=== PATIENT | female | born 2000 | race Caucasian/White ===

== ENCOUNTER 2022-08-13 17:57 | Emergency (ER) | payer OTHER, SELFPAY ==
[2022-08-13] VITALS (16 sets, daily range): BP systolic 120–128; BP diastolic 59–90; PULSE 92–105; RESP 13–20; TEMP 36.7; O2SAT 96–100
--- NOTE | ~2022-08-13 | XR_ITS ---
EXAMINATION: XR chest 1V portable Exam Date/Time: 08/13/2022 18:40 COMMUNITY NURSE HISTORY: seizure Comparison: None available. RESULT: Lines, tubes, and devices: None. Lungs and pleura: Clear. Cardiomediastinal silhouette: Normal. Other: No acute osseous or upper abdominal finding. IMPRESSION: No acute cardiopulmonary process. Reviewed, dictated and finalized at location K. UNITY NURSE
--- NOTE | ~2022-08-13 | CT_ITS ---
EXAMINATION: CT brain wo con DATE: 08/13/2022 19:47 INDICATION: seizures, FALL, HIT TO POSTERIOR HEAD, THAKKAR, NAUSEA . TECHNIQUE: Computed tomography (CT) of the head was performed without intravenous contrast. The mA wa s adjusted according to patient size. Iterative reconstruction technique was employed. The dose-lengt h product was 605.33 mGy-cm. COMPARISON: None. FINDINGS: No acute intracranial hemorrhage or extra-axial fluid collection. No hydrocephalus, mass, or herniation. No acute ischemic infarct. Unremarkable dural venous sinus attenuation. No acute osseous abnormality. Posterior scalp hematoma at the vertex. The aerated spaces are clear. IMPRESSION: No acute intracranial process. Reviewed, dictated and finalized at location K. AGE DESIGNER
--- NOTE | 2022-08-13 18:37 | ECG_ITS ---
Measurements Intervals [place] Rate: 93 P: 75 ME: 137 QRS: -6 QRSD: 98 T: 59 QT: 383 QTc: 478 Interpretive Statements SINUS RHYTHM LEFT ATRIAL ENLARGEMENT INDETERMINATE AXIS INCOMPLETE RIGHT BUNDLE BRANCH BLOCK BORDERLINE ECG NO PREVIOUS ECG AVAILABLE FOR COMPARISON Electronically Signed On 08-14-2022 14:06:09 [employer] by Glenroy Jaimes M.D.
--- NOTE | 2022-08-13 18:40 | ED.SEIZURE ---
HPI - Seizure General Chief Complaint: Seizure Stated Complaint: seizure, no seizure hx, A&O x4 now Time Seen by Provider: 08/13/22 18:27 Source: patient, EMS and RN notes reviewed Mode of arrival: EMS Limitations: no limitations History of Present Illness HPI Narrative: This is a 22 year old female with history of ADHD who presents for evaluation of a seizure. Patient states she was doing laundry. She remembers throwing something in washing machine and then she woke up on the floor. EMS reports patient was witnessed to have grand mal seizure and she was postictal. PAtient denies history of seizures. She denies having preceding dizziness or palpitations. She denies taking new medications. She denies any benzo use. She has not used marijuana in 1 month. She reports nausea now. She denies incontinence or biting her tongue Related Data Allergies Allergy/AdvReac Type Severity Reaction Status Date / Time No Known Allergies Allergy Verified 08/13/22 18:08 Review of Systems Constitutional: Constitutional: Denies weakness Cardiovascular: Cardiovascular: Denies syncope, Denies rapid heart rate, Denies irregular heart rhythm, Denies leg edema and Denies dyspnea Respiratory: Respiratory: Denies chest congestion, Denies hemoptysis, Denies excessive phlegm production and Denies dyspnea Gastrointestinal: Gastrointestinal: Denies abdominal pain, Denies hematochezia, Denies diarrhea and Denies vomiting Genitourinary: Genitourinary: Denies hematuria and Denies dysuria Musculoskeletal: Musculoskeletal: Denies joint swelling, Denies loss of height and Denies muscle weakness Neurologic: Denies syncope, Denies focal weakness and Denies weakness PMFSH Past Medical History Medical History (Updated 08/13/22 @ 21:33 by Radha Mayfield MD) ADHD Social History Social History (Updated 08/13/22 @ 18:51 by Radha Mayfield MD) Tobacco type: e-cigarettes/vaping Alcohol intake: never Substance use: former Substance use type: marijuana Exam Const: General: no acute distress and alert Nutritional Appearance: well nourished Orientation/consciousness: patient oriented x3 HENMT: Head: hematoma (right posterior hematoma) Face and sinus: normal facial exam Mouth: Yes Normal oral and palatal mucosa present and Yes lip normal Throat: posterior oropharynx normal Eyes: Conjunctivae: conjunctivae normal Pupils: Equal, round and reactive pupils present Neck: Neck: normal visual inspection Chest: Chest palpation & inspection: normal inspection of the chest Resp: Effort & Inspection: normal respiratory effort Auscultation: clear to auscultation bilaterally Cardio: Rate: regular rate Rhythm: regular rhythm Heart sounds: no murmurs GI: GI Palp: Yes Soft to palpation, No Tenderness to palpation present (GI), No Guarding due to palpation present (GI) and No Rigid due to palpation Auscultation: normal bowel sounds Skin: General skin exam: normal color Rashes: no rashes Wounds: no wounds Neuro: General: patient oriented x3, moves all extremities and CN's II-XI intact bilaterally Extrem: General: normal to inspection Psych: Appearance: grossly normal Mental Status: mental status grossly normal Affect: normal affect Attitude: cooperative Course Reevaluation(s) Reevaluation #1: I discussed with patient plan to admit for EEG And MRI. SHe initially was okay with decision. She has now decided she does not want to stay because her partner can not stay with her upstairs in room. She has decided to sign AMA. I discussed with patient risk and benefits. She understands and accepts the risk. She reports she will get test ordered as outpatient. I explained this could delay her diagnosis and treatment. Partner is at bedside and understand risk. Date: 08/13/22 Time: 21:22 Consultations Consultation #1: I spoke with Dr. Tirado regarding patient new onset seizure. He recommends admission for EEG, MRI and request patient receive K
[2022-08-13] MEDS: SODIUM CHLORIDE 0.9% IV 1,000 ML 999 ML IV CONT (18:44)
[2022-08-13 19:06] LABS: Appearance Urine Clear (Clear); Bilirubin Urine Negative (Negative); Blood Urine 1+ (Negative); Color Urine Yellow (Yellow); Glucose Urine UA Negative (Negative); Ketones Urine Negative (Negative); Leukocyte Esterase Ur Negative LEU/UL (Negative); Nitrate Urine Negative (Negative); Protein Urine Trace mg/dL (Negative); Urobilinogen Urine 0.2 mg/dL (<2.0); pH Urine 7.5 (5.0-9.0)
[2022-08-13 19:13] LABS: Bacteria Urine Trace /hpf; Mucus Urine Rare /lpf; RBC Urine 0-2 /hpf (0-2); Squamous Epithelial Cell Urine Occasional /hpf (Few); WBC Urine 0-3 /hpf
[2022-08-13 19:15] LABS: Add Urine Microscopic? YES
[2022-08-13 19:21] LABS: Amphetamine Screen Urine Positive (Negative); Barbiturate Screen Urine Negative (Negative); Benzodiazepines Screen Urine Negative (Negative); Cannabinoid Screen Urine Negative (Negative); Cocaine Screen Urine Negative (Negative); Methadone Screen Urine Negative (Negative); Opiate Screen Urine Negative (Negative); Phencyclidine Screen Urine Negative (Negative)
[2022-08-13 19:36] LABS: Basophils Absolute Auto 0.1 K/mm3 (0.0-0.1); Basophils Percent Auto 0.4 % (0.2-1.2); Eosinophils Absolute Auto 0.8 K/mm3 (0-0.3); Eosinophils Percent Auto 5.9 % (0-4.4); Hematocrit 34.5 % (37.0-47.0); Hemoglobin 11.3 g/dL (12.0-15.0); Immature Granulocyte Absolute 0.05 K/mm3 (0.00-0.031); Immature Granulocyte Percent A 0.4 % (0-0.5); Lymphocytes Absolute Auto 1.43 K/mm3 (0.9-3.2); Lymphocytes Percent Auto 10.1 % (18.3-44.2); Mean Corpuscular HGB Conc 32.8 g/dl (32-36); Mean Corpuscular Hemoglobin 29.3 pg (26-34); Mean Corpuscular Volume 89.4 fl (80-100); Mean Platelet Volume 9.6 fl (7.4-10.4); Monocytes Absolute Auto 0.8 K/mm3 (0.1-0.6); Monocytes Percent Auto 5.6 % (2.6-8.5); Neutrophils Percent Auto 77.6 % (45.5-73.1); Platelet Count Result 388 k/mm3 (150-375); Red Blood Count 3.86 M/mm3 (4.2-5.4); Red Cell Distribution Width 13.1 % (11.5-14.5); White Blood Count 14.2 K/mm3 (4.5-10.0)
[2022-08-13 19:47] LABS: Ethanol < 10 mg/dL (<10); Lactic Acid Reflex 1.2 mmol/L (0.7-2.0); Prothrombin Time 12.9 Seconds (11.1-14.7)
[2022-08-13 19:48] LABS: Alanine Aminotransferase 28 U/L (6-35); Albumin Level 4.2 g/dL (3.5-5.1); Alkaline Phosphatase 72 U/L (38-126); Anion Gap 4 mmol/L (8-16); Aspartate Amino Transferase 35 U/L (14-36); Bilirubin,Total 0.4 mg/dL (0.2-1.3); Blood Urea Nitrogen 16 mg/dL (7-17); Calcium 8.4 mg/dL (8.4-10.2); Carbon Dioxide 24 mmol/L (22-30); Chloride 106 mmol/L (98-107); Estimated CRCL calculation 78 ml/min; Estimated Glomerular Filt Rate > 60; Glucose 100 mg/dL (65-110); Magnesium 1.7 mg/dL (1.6-2.3); Partial Thromboplastin Time 26.7 SECONDS (22.3-36.8); Potassium 3.9 mmol/L (3.4-5.0); Sodium 134 mmol/L (137-145)
--- NOTE | 2022-08-13 20:39 | PC.NURSE ---
Pt resting comfortably in bed, seizure precautions maintained, on canine enforcement officer showing SR, all VSS, all needs addressed, no question at this time, updated pt on plan of care.
--- NOTE | 2022-08-13 21:14 | P.HP_ITS ---
H&P: HPI History of Present Illness Date/Time: 08/13/22 21:14 [facility] Past Medical History Medical History (Updated 08/13/22 @ 18:50 by Radha Mayfield MD) ADHD Social History Social History (Updated 08/13/22 @ 18:51 by Radha Mayfield MD) Tobacco type: e-cigarettes/vaping Alcohol intake: never Substance use: former Substance use type: marijuana Meds Home Medications and Allergies Allergies Allergy/AdvReac Type Severity Reaction Status Date / Time No Known Allergies Allergy Verified 08/13/22 18:08 Vital Signs Vital Signs - 24 hr 08/13/22 18:03 08/13/22 18:55 08/13/22 18:55 Temperature 98.1 F Pulse Rate 105 H 99 Respiratory Rate 16 Blood Pressure 120/59 L Pulse Oximetry 100 Oxygen Delivery Room Air Room Air 08/13/22 18:35 08/13/22 19:00 08/13/22 19:01 Temperature Pulse Rate 100 99 97 Respiratory Rate 16 13 15 Blood Pressure 126/90 Pulse Oximetry 100 100 100 Oxygen Delivery 08/13/22 19:17 08/13/22 19:30 08/13/22 19:48 Temperature Pulse Rate 100 97 92 Respiratory Rate 15 18 14 Blood Pressure Pulse Oximetry 100 100 Oxygen Delivery 08/13/22 19:49 08/13/22 20:16 08/13/22 20:17 Temperature Pulse Rate 92 95 99 Respiratory Rate 18 16 17 Blood Pressure 128/85 124/81 Pulse Oximetry 100 100 96 Oxygen Delivery 08/13/22 20:30 Temperature Pulse Rate 94 Respiratory Rate 13 Blood Pressure Pulse Oximetry 100 Oxygen Delivery H&P: Results Labs Labs: Short CBC 08/13/22 Range/Units 19:28 WBC 14.2 H (4.5-10.0) K/mm3 Hgb 11.3 L (12.0-15.0) g/dL Hct 34.5 L (37.0-47.0) % Plt Count 388 H (150-375) k/mm3 BMP 08/13/22 19:28 Sodium 134 L Potassium 3.9 Chloride 106 Carbon Dioxide 24 BUN 16 Creatinine 0.70 Glucose 100 Calcium 8.4 Liver Function 08/13/22 Range/Units 19:28 Total Bilirubin 0.4 (0.2-1.3) mg/dL AST 35 (14-36) U/L ALT 28 (6-35) U/L Alkaline Phosphatase 72 (38-126) U/L Albumin 4.2 (3.5-5.1) g/dL Urine 08/13/22 Range/Units 19:00 Urine Color Yellow (Yellow) Urine Appearance Clear (Clear) Urine pH 7.5 (5.0-9.0) Ur Specific [place] 1.020 (1.001-1.035) Urine Protein Trace (Negative) mg/dL Urine Glucose (UA) Negative (Negative) mg/dL
[2022-08-13 22:01] LABS: Influenza A QL RT-PCR Negative (Negative); Influenza B QL RT-PCR Negative (Negative); SARS-CoV-2 RNA PCR Negative
== END 2022-08-13 22:05 | disposition left against medical advice (07) ==
PROVIDERS: Emergency Provider General Practice; PCP Family Medicine
DX: R56.9 Unspecified convulsions (principal); Z20.822 Contact with and (suspected) exposure to COVID-19; F17.290 Nicotine dependence, other tobacco product, uncomplicated; I45.10 Unspecified right bundle-branch block; R94.31 Abnormal electrocardiogram [ECG] [EKG]
CPT/HCPCS: 36415; 70450; 71045; 80053; 80307; 81001; 81025; 83605; 83735; 85025; 85610; 85730; 87636; 93005; 96360; 99284; J7030

== ENCOUNTER 2023-03-09 18:56 | Emergency (ER) | payer OTHER, SELFPAY ==
--- NOTE | ~2023-03-09 | XR_ITS ---
XR chest 1V portable DATE: 03/09/2023 22:00 INDICATION: Asthma flare. Shortness of breath. TECHNIQUE: Portable upright AP chest on 03/09/2023 2151 hours COMPARISON: August 13, 2022 portable AP chest FINDINGS: Normal heart size. No hilar or mediastinal enlargement. No pulmonary infiltrate or consolid ation, pleural effusion or pulmonary vascular congestion or pneumothorax. IMPRESSION: No active cardiopulmonary disease Reviewed, dictated and finalized at location A.
[2023-03-09 19:14] VITALS: BP 127/77; PULSE 114; RESP 22; TEMP 36.7; O2SAT 100
[2023-03-09 21:14] VITALS: BP 136/82; PULSE 118; RESP 24; O2SAT 97
[2023-03-09 21:23] VITALS: O2SAT 96
--- NOTE | 2023-03-09 21:38 | ED.ASTHMA ---
HPI - Asthma General Chief Complaint: Asthma Stated Complaint: asthma exacerbation Time Seen by Provider: 03/09/23 21:34 Source: patient Mode of arrival: ambulatory Limitations: no limitations History of Present Illness HPI Narrative: 22 years old white female history of asthma, complaining of shortness of breath for the last 2 days, got worse over the last 2 hours prior to arrival. Also complaining of runny nose, sneezing, productive cough. Related Data Allergies Allergy/AdvReac Type Severity Reaction Status Date / Time No Known Allergies Allergy Verified 03/09/23 18:57 Review of Systems Review of Systems: All systems reviewed & are unremarkable except as noted in HPI and below PMFSH Past Medical History Medical History ADHD Social History Social History Tobacco type: e-cigarettes/vaping Alcohol intake: never Substance use: former Substance use type: marijuana Exam Narrative: General appearance: Well-developed, well-nourished Skin: Eczematous changes all over the body, periorbital dermatitis Head: Normocephalic, nontraumatic Eyes: Clear conjunctiva ENT: Oropharynx normal, ears normal, nose normal Neck: Supple, nontender Chest and respiratory: Airway patent, no respiratory distress, generalized wheezing and rhonchi bilaterally mainly expiratory Heart: Regular rate/rhythm Abdomen: Soft, nontender, no organomegaly, quiet bowel sounds Vascular: Normal peripheral pulses, normal capillary refill. Musculoskeletal: Normal range of motion, nontender back Neurologic: Alert and oriented ?3, REVENUE INTEGRITY ANALYST is normal as tested, no gross motor deficit Course Consultations Consultation #1: Patient care turned over to Dr. Johnson at shift change, awaiting, imaging, disposition. Date: 03/09/23 Time: 22:20 Vital Signs Vital signs: Vital Signs Temperature 98.1 F 03/09/23 19:14 Pulse Rate 114 H 03/09/23 19:14 Respiratory Rate 22 H 03/09/23 19:14 Blood Pressure 127/77 03/09/23 19:14 Pulse Oximetry 100 03/09/23 19:14 Oxygen Delivery Room Air 03/09/23 19:14 Temperature 98.1 F 03/09/23 19:14 Pulse Rate 99 03/09/23 22:43 Respiratory Rate 16 03/09/23 22:42 Blood Pressure 136/82 03/09/23 21:14 Pulse Oximetry 96 03/09/23 21:23 Oxygen Delivery Room Air 03/09/23 21:23 MDM - Asthma MDM Narrative Medical decision making narrative: Patient presents with increased shortness of breath and productive cough over the last 2 days. History of asthma and eczema. Patient does not take any medication except rescue inhaler. Physical examination showed generalized wheezing and rhonchi bilaterally and generalized scattered eczema with periorbital dermatitis. Work-up today include chest x-ray, COVID. The plan to start patient on albuterol 2.5 every 20 minutes, check peak flow before and after treatment, prednisone 60 mg p.o. once. Differential Diagnosis Differential diagnosis: Likely Acute exacerbation, Acute asthmatic bronchitis, Pneumonia and other (Eczema) Lab Data Labs: Lab Results 03/09/23 Range/Units 22:33 SARS-CoV-2 RNA (RT-PCR) Negative (Negative) Discharge Plan Discharge Clinical Impression: Asthma with acute exacerbation, Eczema Patient Disposition: Home, Self-Care Condition: Stable Instructions: Antibiotic Form, Asthma (ED), Eczema (ED), Allergies (ED) Prescriptions: New triamcinolone acetonide 0.5 % cream 1 applic topical TID Qty: 15 0RF albuterol sulfate 90 mcg/actuation aerosol powdr breath activated 2 inh inhalation Q4-6H PRN (Reason: shortness of manav
[2023-03-09] MEDS: IPRATROPIUM BR 0.02% INH SOLN 0.5 MG/2.5 ML VIAL INHALATION (22:01)
[2023-03-09] MEDS: ALBUTEROL SULFATE NEB 2.5 MG/3 ML INH INHALATION ×3 (22:01→22:21)
[2023-03-09 22:08] VITALS: PULSE 82; RESP 16
[2023-03-09] MEDS: predniSONE 20 MG TABLET 60 MG PO (22:29)
[2023-03-09 22:42] VITALS: PULSE 79; RESP 16
[2023-03-09 22:43] VITALS: PULSE 99
[2023-03-09 23:37] LABS: SARS-CoV-2 RNA PCR Negative (Negative)
--- NOTE | 2023-03-10 01:15 | PC.NURSE ---
This RN assumed care of patient. This RN took patient report from POLO Zamudio.
[2023-03-10 02:12] VITALS: BP 118/75; PULSE 96; RESP 15; O2SAT 100
== END 2023-03-10 02:15 | disposition home or self-care (01) ==
PROVIDERS: Emergency Medicine; Emergency Provider Student in an Organized Health Care Education/Training Program; PCP Family Medicine
DX: J45.901 Unspecified asthma with (acute) exacerbation (principal); L30.9 Dermatitis, unspecified; F17.290 Nicotine dependence, other tobacco product, uncomplicated
CPT/HCPCS: 71045; 87635; 94640; 99283; J7512

== ENCOUNTER 2023-04-24 21:15 | Emergency (ER) | payer OTHER, SELFPAY ==
[2023-04-24 21:32] VITALS: BP 133/90; PULSE 54; RESP 14; TEMP 36.5; O2SAT 98
[2023-04-24 22:16] LABS: Appearance Urine Clear (Clear); Bilirubin Urine Negative (Negative); Blood Urine Negative (Negative); Color Urine Yellow (Yellow); Glucose Urine UA Negative (Negative); Ketones Urine Negative (Negative); Leukocyte Esterase Ur Negative LEU/UL (Negative); Nitrate Urine Negative (Negative); Protein Urine Negative (Negative); Specific Grav Ur 1.016 (1.001-1.035); pH Urine 7.5 (5.0-9.0)
[2023-04-24 22:17] LABS: Basophils Percent Auto 0.3 % (0.2-1.2); Eosinophils Absolute Auto 0.1 K/mm3 (0-0.3); Eosinophils Percent Auto 0.3 % (0-4.4); Hematocrit 35.3 % (37.0-47.0); Hemoglobin 10.6 g/dL (12.0-15.0); Immature Granulocyte Absolute 0.32 K/mm3 (0.00-0.031); Immature Granulocyte Percent A 2.1 % (0-0.5); Lymphocytes Absolute Auto 2.19 K/mm3 (0.9-3.2); Lymphocytes Percent Auto 14.5 % (18.3-44.2); Mean Corpuscular Hemoglobin 25.9 pg (26-34); Mean Corpuscular Volume 86.1 fl (80-100); Mean Platelet Volume 9.9 fl (7.4-10.4); Monocytes Absolute Auto 0.8 K/mm3 (0.1-0.6); Monocytes Percent Auto 5.4 % (2.6-8.5); Neutrophils Absolute Auto 11.7 K/mm3 (1.3-6.7); Neutrophils Percent Auto 77.4 % (45.5-73.1); Platelet Count Result 448 k/mm3 (150-375); White Blood Count 15.1 K/mm3 (4.5-10.0)
[2023-04-24 22:22] LABS: Add Urine Microscopic? NO
[2023-04-24 22:26] LABS: Acetaminophen < 10 ug/mL (10-30); Ethanol < 10 mg/dL (<10); Salicylate < 1.0 mg/dL (2-20)
[2023-04-24 22:28] LABS: Alanine Aminotransferase 28 U/L (6-35); Albumin Level 4.3 g/dL (3.5-5.1); Alkaline Phosphatase 76 U/L (38-126); Anion Gap 8 mmol/L (8-16); Aspartate Amino Transferase 25 U/L (14-36); Bilirubin,Total 0.3 mg/dL (0.2-1.3); Blood Urea Nitrogen 14 mg/dL (7-17); Calcium 9.5 mg/dL (8.4-10.2); Carbon Dioxide 21 mmol/L (22-30); Chloride 107 mmol/L (98-107); Estimated CRCL calculation 87 ml/min; Estimated Glomerular Filt Rate > 60; Glucose 105 mg/dL (65-110); Potassium 4.1 mmol/L (3.4-5.0); Sodium 136 mmol/L (137-145)
--- NOTE | 2023-04-24 22:30 | ED.PSYCH ---
HPI - Psych General Chief Complaint: Psychiatric Symptoms Stated Complaint: psychotic episode Time Seen by Provider: 04/24/23 21:48 Source: patient and old records reviewed Mode of arrival: ambulatory Limitations: no limitations History of Present Illness HPI Narrative: Patient is a 22 y/o female, with PMH of bipolar disorder, OCD, DID, who presents to the ED with c/o psychotic episode. Patient reports that she has approximately 120 different personalities. She states she took her normal psychiatric medications tonight but then smoked a weed vape pen. She states she smoked too much. She began feeling like she was going to have a seizure and went into a psychotic episode. She then called for her friends to come help her. Patient states she has had 2 previous psychotic episodes in the past. She began having dark thoughts during this episode and had thoughts of wanting to stab herself with a knife in the hand. She has had several previous suicide attempts in the past, mostly overdoses. She states she is always suicidal. She did not attempt anything or take any additional medicines tonight. Denied any homicidal ideation. Related Data Allergies Allergy/AdvReac Type Severity Reaction Status Date / Time No Known Allergies Allergy Verified 03/09/23 18:57 Review of Systems Review of Systems: CONSTITUTIONAL: Denies fever, chills, or sweats. CARDIOVASCULAR: Denies chest pain. RESPIRATORY: Denies dyspnea. GASTROINTESTINAL: Denies abdominal pain, nausea, vomiting. NEUROLOGIC: Denies headache, numbness, or weakness. PSYCHIATRIC: See HPI. All systems reviewed & are unremarkable except as noted in HPI and below PMFSH Past Medical History Medical History (Updated 04/25/23 @ 02:44 by Jazmin Fernandez PA-C) ADHD Bipolar 1 disorder Dissociative identity disorder Social History Social History Tobacco type: e-cigarettes/vaping Alcohol intake: never Substance use: former Substance use type: marijuana and prescription drug Exam Narrative: GENERAL: Well appearing, well-nourished, non-toxic, in no acute distress. HEAD: Normocephalic, atraumatic. NECK: Supple. No adenopathy, no masses. RESPIRATORY: Airway patent, respirations nonlabored. Clear to auscultation bilaterally, no rales, rhonchi, wheezing. CARDIOVASCULAR: Regular rate and rhythm without murmurs, rubs, or gallops. Radial pulses 2+ and equal bilaterally. MUSCULOSKELETAL: Moves all extremities. Strength/ROM intact without gross deformities. SKIN: Warm, dry, normal color. Skin very dry, erythematous. NEURO: A&O X3. Speech clear. Cranial nerves II-XII grossly intact. Steady gait. No ataxic movements. PSYCHIATRIC: Labile mood. Frequently changing tone and pitch of voice. Frequently talking to/addressing other personalities. Course Vital Signs Vital signs: Vital Signs Temperature 97.7 F 04/24/23 21:32 Pulse Rate 54 L 04/24/23 21:32 Respiratory Rate 14 04/24/23 21:32 Blood Pressure 133/90 04/24/23 21:32 Pulse Oximetry 98 04/24/23 21:32 Oxygen Delivery Room Air 04/24/23 21:32 Temperature 97.7 F 04/24/23 21:32 Pulse Rate 54 L 04/24/23 21:32 Respiratory Rate 14 04/24/23 21:32 Blood Pressure 133/90 04/24/23 21:32 Pulse Oximetry 98 04/24/23 21:32 Oxygen Delivery Room Air 04/24/23 21:32 MDM - Psych MDM Narrative Medical decision making narrative: Patient presented to ED with psychotic episode after smoking marijuana from a vape pen. Had brief thoughts of wanting to harm herself, but reports she is always suicidal. Patient stable upon arrival. No acute distress. Calm and cooperative. ED psych work-up initiated and fairly unremarkable. Mild leukocytosis to 15.1 noted, patient denying infectious symptoms. She is currently on prednisone for an eczema flareup. Patient medically cleared to undergo psychiatric evaluation by crisis. Isatu samuel
[2023-04-24 22:31] LABS: Amphetamine Screen Urine Negative (Negative); Barbiturate Screen Urine Negative (Negative); Benzodiazepines Screen Urine Negative (Negative); Cannabinoid Screen Urine Positive (Negative); Cocaine Screen Urine Negative (Negative); Methadone Screen Urine Negative (Negative); Opiate Screen Urine Negative (Negative); Phencyclidine Screen Urine Negative (Negative)
[2023-04-24 22:54] LABS: SARS-CoV-2 RNA PCR Negative (Negative)
[2023-04-24 22:59] LABS: Thyroid Stimulating Hormone 0.358 uIU/mL (0.465-4.680)
[2023-04-24 23:42] LABS: Free T4 Free Thyroxine 0.74 ng/mL (0.78-2.19)
--- NOTE | 2023-04-24 23:51 | PC.NURSE ---
[facility] denied patient. Molly called and states they will be sending someone out.
== END 2023-04-25 03:18 | disposition home or self-care (01) ==
PROVIDERS: Emergency Provider Physician Assistant; PCP Family Medicine
DX: F44.81 Dissociative identity disorder (principal); R94.6 Abnormal results of thyroid function studies; T40.715A Adverse effect of cannabis, initial encounter; F17.290 Nicotine dependence, other tobacco product, uncomplicated; Z20.822 Contact with and (suspected) exposure to COVID-19
CPT/HCPCS: 36415; 80053; 80307; 81003; 81025; 84439; 84443; 85025; 87635; 99284

== ENCOUNTER 2023-05-04 18:03 | Emergency (ER) | payer OTHER, SELFPAY ==
[2023-05-04 18:22] VITALS: BP 144/96; PULSE 96; RESP 17; TEMP 36.9; O2SAT 100
--- NOTE | 2023-05-04 19:26 | ED.GENADULT ---
HPI - General Adult General Chief complaint: Skin/Abscess/Foreign Body Stated complaint: rash Time Seen by Provider: 05/04/23 19:26 Source: patient Mode of arrival: ambulatory Limitations: no limitations History of Present Illness HPI narrative: 22 years old white female with history of chronic eczema since she was 9 years old. Patient usually takes prednisone, and triamcinolone cream and Zyrtec. Patient ran out of prednisone. Had a refill of triamcinolone cream today. Patient reported that her eczema is getting worse, generalized itching mainly on the face, chest, upper extremities. She denies any shortness of breath or difficulty swallowing Related Data Allergies Allergy/AdvReac Type Severity Reaction Status Date / Time No Known Allergies Allergy Verified 03/09/23 18:57 Review of Systems Review of Systems: All systems reviewed & are unremarkable except as noted in HPI and below PMFSH Past Medical History Medical History ADHD Bipolar 1 disorder Dissociative identity disorder Social History Social History Tobacco type: e-cigarettes/vaping Alcohol intake: never Substance use: former Substance use type: marijuana and prescription drug Exam Narrative: General appearance: Well-developed, well-nourished Skin: Examples changes, scattered on the face, chest, abdomen, upper extremities Head: Normocephalic, nontraumatic Eyes: Clear conjunctiva ENT: Oropharynx normal, ears normal, nose normal Neck: Supple, nontender Chest and respiratory: Airway patent, no respiratory distress, no accessory muscle use Heart: Regular rate/rhythm Abdomen: Soft, nontender, no organomegaly, quiet bowel sounds Vascular: Normal peripheral pulses, normal capillary refill. Musculoskeletal: Normal range of motion, nontender back Neurologic: Alert and oriented ?3, PAPER TUBE GRADER is normal as tested, no gross motor deficit Course Reevaluation(s) Reevaluation #1: Improving Date: 05/04/23 Time: 19:46 Vital Signs Vital signs: Vital Signs Temperature 36.9 C 05/04/23 18:22 Pulse Rate 96 05/04/23 18:22 Respiratory Rate 17 05/04/23 18:22 Blood Pressure 144/96 H 05/04/23 18:22 Pulse Oximetry 100 05/04/23 18:22 Oxygen Delivery Room Air 05/04/23 18:22 Temperature 36.9 C 05/04/23 18:22 Pulse Rate 96 05/04/23 18:22 Respiratory Rate 17 05/04/23 18:22 Blood Pressure 144/96 H 05/04/23 18:22 Pulse Oximetry 100 05/04/23 18:22 Oxygen Delivery Room Air 05/04/23 18:22 Medical Decision Making MDM Narrative Medical decision making narrative: History of eczema, ran out of prednisone. In the ED patient received 60 mg prednisone p.o., 0.3 mg of epinephrine IM, 20 mg of Zyrtec p.o., My plan to discharge patient home on prednisone 40 mg once a day for the next 5 days, and Singulair. And patient advised to continue topical triamcinolone cream. Differential Diagnosis Differential Diagnosis: Eczema Medical Records Medical records reviewed: Yes I reviewed the external patient's medical records. Vital Signs Vital Signs: Vital Signs Temperature 36.9 C 05/04/23 18:22 Pulse Rate 96 05/04/23 18:22 Respiratory Rate 17 05/04/23 18:22 Blood Pressure 144/96 H 05/04/23 18:22 Pulse Oximetry 100 05/04/23 18:22 Oxygen Delivery Room Air 05/04/23 18:22 Temperature 36.9 C 05/04/23 18:22 Pulse Rate 96 05/04/23 18:22 Respiratory Rate 17 05/04/23 18:22 Blood Pressure 144/96 H 05/04/23 18:22 Pulse Oximetry 100 05/04/23 18:22 Oxygen Delivery Room Air 05/04/23 18:22 Critical Care Time Delia
[2023-05-04 20:24] VITALS: BP 138/71; PULSE 86; RESP 16; O2SAT 99
[2023-05-04] MEDS: EPINEPHrine HCL INJ 1 MG/ML AMPUL 0.3 MG IM (20:26)
[2023-05-04] MEDS: LORATADINE 10 MG TABLET 20 MG PO (20:26)
[2023-05-04] MEDS: predniSONE 20 MG TABLET 60 MG PO (20:26)
== END 2023-05-04 20:39 | disposition home or self-care (01) ==
PROVIDERS: Emergency Provider Emergency Medicine; PCP Family Medicine
DX: L30.9 Dermatitis, unspecified (principal); F17.290 Nicotine dependence, other tobacco product, uncomplicated
CPT/HCPCS: 96372; 99283; A9270; J0171; J7512

== ENCOUNTER 2023-08-18 12:01 | Emergency (ER) | payer OTHER, SELFPAY ==
[2023-08-18 12:16] VITALS: BP 147/85; PULSE 87; RESP 16; TEMP 36.6; O2SAT 100
--- NOTE | 2023-08-18 12:18 | ED.GENADULT ---
HPI - General Adult General Chief complaint: Unspecified Stated complaint: asthma issue, exhausted , knee/back pain Source: patient, RN notes reviewed and old records reviewed Mode of arrival: ambulatory Limitations: no limitations History of Present Illness HPI narrative: 23-year-old female presents to [facility] with complaint for fatigue and myalgia this started several months ago. Patient states this pain on and off. Patient states it is worse when it is cold patient states pain is mostly joints. Patient takes [id number]-[id number] medications with no relief. Patient has not seen a primary care physician for this. Related Data Home Medications Medication Instructions Recorded Confirmed fluoxetine 40 mg capsule 40 mg PO DAILY 08/18/23 08/18/23 fluticasone propionate 50 2 spray intranasal DAILY 08/18/23 08/18/23 mcg/actuation nasal spray,suspension lurasidone 40 mg tablet 40 mg PO DIRECTED 08/18/23 08/18/23 prazosin 2 mg capsule 4 mg PO HS 08/18/23 08/18/23 Allergies Allergy/AdvReac Type Severity Reaction Status Date / Time No Known Allergies Allergy Verified 08/18/23 12:11 Review of Systems Constitutional: Constitutional: Reports no additional constitutional complaints, Reports body ache(s), Denies chills, Reports fatigue, Denies fever(s) and Denies headache(s) Eyes: Eyes: Reports no additional eye complaints and Denies blurry vision ENT: Reports system reviewed and no additional complaints, except as documented, Denies vertigo, Denies dizziness, Denies ear discharge, Denies otalgia, Denies facial pain, Denies headache(s), Denies nasal congestion, Denies nasal discharge, Denies sinus pain, Denies sinus pressure and Denies sore throat Cardiovascular: Cardiovascular: Reports no additional cardiovascular complaints, Denies chest pain, Denies chest pain at rest, Denies rapid heart rate and Denies dyspnea Respiratory: Respiratory: Reports no additional respiratory complaints, Denies chest congestion, Denies cough, Denies pain on inspiration, Denies pain with cough and Denies dyspnea Gastrointestinal: Gastrointestinal: Denies abdominal pain, Denies diarrhea, Denies nausea and Denies vomiting Musculoskeletal: Musculoskeletal: Reports arthralgias Integumentary/Breasts: Skin/Breast: Denies rash Neurologic: Reports system reviewed and no additional complaints, except as documented, Denies vertigo, Denies dizziness and Denies headache(s) Endocrine: Endocrine: Denies fatigue PMFSH Past Medical History Medical History ADHD Bipolar 1 disorder Dissociative identity disorder Social History Social History Tobacco type: e-cigarettes/vaping Alcohol intake: never Substance use: former Substance use type: marijuana and prescription drug Comments At the time of my signature, I reviewed and agree with the nursing past medical, surgical, social, and family history. There is no relevant family history pertinent to the patient complaint. Exam Const: General: cooperative, healthy appearing, no acute distress and well nourished Nutritional Appearance: well nourished Orientation/consciousness: patient oriented x3 Limitations: no limitations HENMT: Head: normal to inspection and normocephalic Ears: external ears normal Face/Nose/Sinus: normal facial exam Face and sinus: normal facial exam Mouth: Yes Normal oral and palatal mucosa present, Yes oropharynx normal and Yes moist mucous membranes Eyes: General: appearance normal, both eyes and all related structures Sclera: sclerae normal Pupils: Equal, round and reactive pupils present Resp: Effort & Inspection: normal respiratory effort, able to speak in complete sentences, no audible wheezes, no cough, no respiratory distress and no retractions Back/Spine/Pelvis: Back: no CVA tenderness Cervical Spine: normal cervical lordosis Thoracic/Lumbar Spin
--- NOTE | 2023-08-18 12:56 | ED.GENADULT ---
HPI - General Adult General Chief complaint: Unspecified Stated complaint: asthma issue, exhausted , knee/back pain Source: patient, RN notes reviewed and old records reviewed Mode of arrival: ambulatory Limitations: no limitations Related Data Home Medications Medication Instructions Recorded Confirmed fluoxetine 40 mg capsule 40 mg PO DAILY 08/18/23 08/18/23 fluticasone propionate 50 2 spray intranasal DAILY 08/18/23 08/18/23 mcg/actuation nasal spray,suspension lurasidone 40 mg tablet 40 mg PO DIRECTED 08/18/23 08/18/23 prazosin 2 mg capsule 4 mg PO HS 08/18/23 08/18/23 Allergies Allergy/AdvReac Type Severity Reaction Status Date / Time No Known Allergies Allergy Verified 08/18/23 12:11 Review of Systems Constitutional: Constitutional: Reports no additional constitutional complaints, Denies body ache(s), Denies chills, Reports fatigue, Denies fever(s) and Denies headache(s) Eyes: Eyes: Reports no additional eye complaints and Denies blurry vision ENT: Reports system reviewed and no additional complaints, except as documented, Denies vertigo, Denies dizziness, Denies ear discharge, Denies otalgia, Denies facial pain, Denies headache(s), Denies nasal congestion, Denies nasal discharge, Denies sinus pain, Denies sinus pressure and Denies sore throat Cardiovascular: Cardiovascular: Reports no additional cardiovascular complaints, Denies chest pain, Denies chest pain at rest, Denies rapid heart rate and Denies dyspnea Respiratory: Respiratory: Reports no additional respiratory complaints, Denies chest congestion, Denies cough, Denies pain on inspiration, Denies pain with cough and Denies dyspnea Gastrointestinal: Gastrointestinal: Denies abdominal pain, Denies diarrhea, Denies nausea and Denies vomiting Musculoskeletal: Musculoskeletal: Reports arthralgias Integumentary/Breasts: Skin/Breast: Denies rash Neurologic: Reports system reviewed and no additional complaints, except as documented, Denies vertigo, Denies dizziness and Denies headache(s) Endocrine: Endocrine: Denies fatigue PMFSH Past Medical History Medical History ADHD Bipolar 1 disorder Dissociative identity disorder Social History Social History Tobacco type: e-cigarettes/vaping Alcohol intake: never Substance use: former Substance use type: marijuana and prescription drug Comments At the time of my signature, I reviewed and agree with the nursing past medical, surgical, social, and family history. There is no relevant family history pertinent to the patient complaint. Exam Const: General: cooperative, healthy appearing, no acute distress and well nourished Nutritional Appearance: well nourished Orientation/consciousness: patient oriented x3 Limitations: no limitations HENMT: Head: normal to inspection and normocephalic Ears: external ears normal and TM's normal bilaterally Face/Nose/Sinus: normal facial exam Face and sinus: normal facial exam Mouth: Yes Normal oral and palatal mucosa present, Yes oropharynx normal and Yes moist mucous membranes Eyes: General: appearance normal, both eyes and all related structures Sclera: sclerae normal Pupils: Equal, round and reactive pupils present Resp: Effort & Inspection: normal respiratory effort, able to speak in complete sentences, no audible wheezes, no cough, no respiratory distress and no retractions Back/Spine/Pelvis: Back: no CVA tenderness Cervical Spine: normal cervical lordosis and cervical ROM normal Thoracic/Lumbar Spine: thoracic and lumbar spine normal to inspection Skin: General skin exam: normal color and no rashes or lesions noted Neuro: General: patient oriented x3 Cranial nerves: Yes Equal, round and reactive pupils present Extrem: General: normal to inspection, full ROM, capillary refill normal, normal exam except as noted, no joint enlargement, n
== END 2023-08-18 12:50 | disposition home or self-care (01) ==
PROVIDERS: Emergency Provider Registered Nurse; PCP Family Medicine
DX: R53.83 Other fatigue (principal); M25.50 Pain in unspecified joint; F31.9 Bipolar disorder, unspecified; F90.9 Attention-deficit hyperactivity disorder, unspecified type
CPT/HCPCS: 87426; 87804; 99213; G0463

== ENCOUNTER 2023-09-27 00:04 | Emergency (ER) | payer MEDICAID, SELFPAY ==
[2023-09-27] VITALS (12 sets, daily range): BP systolic 90–129; BP diastolic 46–84; PULSE 74–108; RESP 13–26; TEMP 36.6–36.8; O2SAT 96–100
--- NOTE | 2023-09-27 00:28 | ECG_ITS ---
SEE SCANNED COPY FOR CONFIRMED REPORT MTDD
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
[2023-09-27 00:43] LABS: Basophils Absolute Auto 0.1 K/mm3 (0.0-0.1); Basophils Percent Auto 0.7 % (0.2-1.2); Eosinophils Absolute Auto 2.2 K/mm3 (0-0.3); Eosinophils Percent Auto 15.6 % (0-4.4); Hematocrit 36.3 % (37.0-47.0); Hemoglobin 11.5 g/dL (12.0-15.0); Immature Granulocyte Absolute 0.08 K/mm3 (0.00-0.031); Immature Granulocyte Percent A 0.6 % (0-0.5); Lymphocytes Absolute Auto 3.68 K/mm3 (0.9-3.2); Lymphocytes Percent Auto 26.7 % (18.3-44.2); Mean Corpuscular HGB Conc 31.7 g/dl (32-36); Mean Corpuscular Hemoglobin 26.9 pg (26-34); Mean Corpuscular Volume 84.8 fl (80-100); Mean Platelet Volume 10.7 fl (7.4-10.4); Monocytes Absolute Auto 0.7 K/mm3 (0.1-0.6); Monocytes Percent Auto 5.3 % (2.6-8.5); Neutrophils Absolute Auto 7.1 K/mm3 (1.3-6.7); Neutrophils Percent Auto 51.1 % (45.5-73.1); Platelet Count Result 431 k/mm3 (150-375); Red Blood Count 4.28 M/mm3 (4.2-5.4); Red Cell Distribution Width 14.9 % (11.5-14.5); White Blood Count 13.8 K/mm3 (4.5-10.0)
[2023-09-27 00:51] LABS: Acetaminophen < 10 ug/mL (10-30); Ethanol 176 mg/dL (<10); Salicylate < 1.0 mg/dL (2-20)
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
[2023-09-27 01:04] LABS: Anisocytosis 1+; Burr Cells 1+; Ovalocytes 1+; Platelet Estimate Increased (Adequate); Schistocytes None Seen
[2023-09-27 01:17] LABS: Alanine Aminotransferase 28 U/L (6-35); Albumin Level 4.3 g/dL (3.5-5.1); Alkaline Phosphatase 77 U/L (38-126); Anion Gap 13 mmol/L (4-12); Aspartate Amino Transferase 25 U/L (14-36); Bilirubin,Total 0.3 mg/dL (0.2-1.3); Blood Urea Nitrogen 12 mg/dL (7-17); Calcium 9.1 mg/dL (8.4-10.2); Carbon Dioxide 19 mmol/L (22-30); Chloride 106 mmol/L (98-107); Estimated Glomerular Filt Rate > 60; Glucose 126 mg/dL (65-110); Potassium 2.9 mmol/L (3.4-5.0); Sodium 138 mmol/L (137-145)
[2023-09-27 01:18] LABS: Influenza A QL RT-PCR Negative (Negative); Influenza B QL RT-PCR Negative (Negative); RSV RNA, RT-PCR Negative (Negative); SARS-CoV-2 RNA PCR Negative (Negative)
[2023-09-27] MEDS: SODIUM CHLORIDE 0.9% IV 1,000 ML 999 ML IV CONT ×2 (01:34→03:21)
[2023-09-27 03:22] LABS: Appearance Urine Clear (Clear); Bacteria Urine 1+ /hpf; Bilirubin Urine Negative (Negative); Blood Urine Negative (Negative); Color Urine Yellow (Yellow); Glucose Urine UA Negative (Negative); Ketones Urine Negative (Negative); Leukocyte Esterase Ur 1+ LEU/UL (Negative); Need Manual Microscopic Reviewed; Nitrate Urine Negative (Negative); Non Pathogenic Casts 0-2; Protein Urine Negative (Negative); RBC Urine 0-2 /hpf (0-2); Specific Grav Ur 1.006 (1.001-1.035); Squamous Epithelial Cell Urine Occasional /hpf (Few); Urobilinogen Urine 0.2 mg/dL (<2.0); WBC Urine 0-5 /hpf (0-3)
[2023-09-27 03:25] LABS: Add Urine Microscopic? YES
[2023-09-27 04:10] LABS: Amphetamine Screen Urine Negative (Negative); Barbiturate Screen Urine Negative (Negative); Benzodiazepines Screen Urine Negative (Negative); Cannabinoid Screen Urine Positive (Negative); Cocaine Screen Urine Negative (Negative); Methadone Screen Urine Negative (Negative); Opiate Screen Urine Negative (Negative); Phencyclidine Screen Urine Negative (Negative)
--- NOTE | 2023-09-27 05:10 | PC.NURSE ---
Pt sleeping. Sitter remains within line of sight.
[2023-09-27 05:24] LABS: Ethanol 75 mg/dL (<10)
--- NOTE | 2023-09-27 06:18 | PC.NURSE ---
Pt ambulatory to restroom. Cooperative at this time.
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
--- NOTE | 2023-09-27 07:14 | PC.NURSE ---
Bedside report to POLO King.
[2023-09-27] MEDS: POTASSIUM CHLORIDE 20 MEQ PACKET (FOR LIQUID) 40 MEQ PO (07:35)
--- NOTE | 2023-09-27 07:50 | ECG_ITS ---
Measurements Intervals [place] Rate: 82 P: 69 FL: 147* QRS: 4 QRSD: 93 T: 60 QT: 428 Avg RR: 731 QTc: 466 QTcB 500 QTcF 475 Interpretive Statements SINUS RHYTHM INDETERMINATE AXIS ATYPICAL ECG SEE SCANNED COPY FOR SIGNATURE MTDD
--- NOTE | 2023-09-27 08:00 | PC.NURSE ---
PER DR LORA AND POISON CONTR[facility] THE PT IS NOW MEDICALLY CLEARED SINCE EKG IS NORMAL
--- NOTE | 2023-09-27 11:42 | PC.NURSE ---
PT JUST SPOKE WITH CRISIS AND WAS TALKING WITH MOTHER. SHE THEN RAN OUT OF HER ROOM OUTSIDE THE EMS DOORS. SECURITY MADE AWARE.
--- NOTE | 2023-09-27 11:44 | PC.NURSE ---
[facility] NOTIFIED THAT PT IS NOW INVOLUNTARY AND THEY ARE NOW LOOKING FOR THE PT TO BRING HER BACK.
--- NOTE | 2023-09-27 12:10 | PC.NURSE ---
PT IS NOW BACK IN THE ROOM AFTER [facility] FOUND HER AND BROUGHT HER BACK. PT CURRENTLY SPEAKING WITH MOTHER. SITTER REMAINS AT BEDSIDE.
[2023-09-27] MEDS: diphenhydrAMINE HCl INJ 50 MG/ML VIAL 25 MG IM (12:30)
[2023-09-27] MEDS: HALOPERIDOL LACTATE 5 MG/ML VIAL IM (12:30)
[2023-09-27] MEDS: LORazepam INJ (*CRX) 2 MG/ML VIAL 1 MG IM (12:38)
[2023-09-27 14:28] LABS: SPREG INTERNAL CONTROL Positive; Serum Qual hCG Negative
--- NOTE | 2023-09-27 15:51 | PC.NURSE ---
YARI MATA NURSE FROM [facility] CALLED AND WANTED THE CASE NUMBER FROM [facility]. I SPOKE WITH SHYANNE Singh WHO GAVE ME THE
== END 2023-09-27 18:40 ==
PROVIDERS: Emergency Medicine; Emergency Provider Emergency Medicine; PCP Family Medicine
DX: T50.902A Poisoning by unspecified drugs, medicaments and biological substances, intentional self-harm, initial encounter (principal); F10.129 Alcohol abuse with intoxication, unspecified; Y90.6 Blood alcohol level of 120-199 mg/100 ml; F44.81 Dissociative identity disorder; F31.9 Bipolar disorder, unspecified; F29 Unspecified psychosis not due to a substance or known physiological condition; Z11.52 Encounter for screening for COVID-19; F90.9 Attention-deficit hyperactivity disorder, unspecified type; R94.31 Abnormal electrocardiogram [ECG] [EKG]
CPT/HCPCS: 36415; 80053; 80307; 81001; 84443; 84703; 85025; 87637; 93005; 96360; 96361; 96372; 99285; A9270; J1200; J1630; J2060; J7030